=== PATIENT | male | born 1975 | race Hispanic/Latino ===

== ENCOUNTER → 2024-02-15 | Outpatient (REF) | payer OTHER | LOC: US 07:35 | PROVIDERS: ATTEND Nurse Practitioner | DX: K85.20 Alcohol induced acute pancreatitis without necrosis or infection (principal); R74.8 Abnormal levels of other serum enzymes; R79.89 Other specified abnormal findings of blood chemistry; K86.89 Other specified diseases of pancreas | CPT/HCPCS: 76700 ==